=== PATIENT | female | born 1945 | race Caucasian/White ===

== ENCOUNTER 2022-12-08 11:43 | Outpatient (REF) | payer MEDICARE, MEDICAID, SELFPAY | END 2022-12-08 11:44 | disposition home or self-care (01) | LOC: HO.HAP 11:43 | PROVIDERS: Visit Provider Internal Medicine | DX: Z46.1 Encounter for fitting and adjustment of hearing aid (principal); H90.3 Sensorineural hearing loss, bilateral | CPT/HCPCS: 92593; 99499 ==

== ENCOUNTER 2025-06-16 10:57 | Outpatient (REF) | payer SELFPAY ==
--- OUTSIDE RECORDS SUMMARY | 2025-06-16 14:01 | XMS_ITS | Encounter Summary ---
Author Organization [facility] Address [address] [place], [place] [id number] Care Team Providers Care R And D Lab Technician Name Role Phone Sarah Nolasco PA-C Primary Care Provi bree Roman Calix MD Unavailable Reason for Visit * Reason Comments Appointment Encounter Details Date Type Department Care Team (Late Contact Info) Description 06/18/[address] [phone] Sarah Nolasco PA-C [address] [place] [address] Appointment Social History Tobacco Use Types Packs/Day Years Used Date Smoking Tobacco: Never Smokeless Tobacco: Never Alcohol Use Standard Drinks/Week Comments Never 0 (1 standard drink = 0.6 oz pur e alcohol) PHQ-2 Answer Date Recorded PHQ-2 Total Score 0 02/12/2024 Comments No Sex and Gender Information Value Date Recorded Sex Assigned at Female 02/11/2024 2:08 PM EDT Legal Sex Female 1:16 PM EST Gender Identity Female 02/11/2024 2:08 PM EDT Sexual Orientation Heterosexual (straight) 02/10 2:08 PM EDT documented as of this encounter Plan of Treatment Upcoming Encounters Date Type Department Care Team ([facility] Contact Info) Description 09/28/2025 11:00 AM EST Office Visit [address] [place] [phone] Sarah Nolasco PA-C [address] [place] [address] documented as of this encounter Visit Diagnoses Not on filedocumented in this encounter Care Teams R And D Lab Technician Relationship Specialty Start Date End Date Sarah Nolasco PA-C [address] [place] [address] PCP - General Internal Medicine 02/02/24 Roman Calix MD [address] [place] [address] Referring Provider Cardiology-Scan 02/02/24 [facility] Dermatology 01/14/24 Meka Bahena Nurse Practitioner Surgery, Breast 01/14/24 documented as of this encounter
--- OUTSIDE RECORDS SUMMARY | 2025-06-16 14:01 | XMS_ITS | Encounter Summary ---
Author Organization [facility] Address [address] [place], [place] [id number] Care Team Providers Care Suit Maker Name Role Phone Sarah Nolasco PA-C Primary Care Provi bree Roman Calix MD Unavailable Encounter Details Date Type Department Care Team (Late Contact Info) Description 06/24/2024 Scanned Document [address] [phone] Sarah Nolasco PA-C [address] [place] [address] Social History Tobacco Use Types Packs/Day Years [...] Upcoming Encounters Date Type Department Care Team (Late Contact Info) Description 09/28/2025 11:00 AM EST Office Visit [address] [phone] Sarah Nolasco PA-C [address] [place], [place] [phone] documented as of this encounter Visit Diagnoses Not on filedocumented in this encounter Care Teams Suit Maker Relationship Specialty Start Date End Date Sarah Nolasco PA-C [address] [place] [address] PCP - General Internal Medicine 02/02/24 Roman Calix MD [address] [place] [address] Referring Provider Cardiology-Scan 02/02/24 [facility] Dermatology 01/14/24 Meka Bahena Nurse Practitioner Surgery, Breast 01/14/24 documented as of this encounter
--- OUTSIDE RECORDS SUMMARY | 2025-06-16 14:01 | XMS_ITS | Encounter Summary ---
Author Organization [facility] Address [address] [place] [address] Care Team Providers Care Optometric Assistant Name Role Phone Sarah Nolasco PA-C Primary Care Provi bree Roman Calix MD Unavailable [phone] Encounter Details Date Type Department Care Team (Late Contact Info) Description 02/28/2024 Scanned Document [facility] [address] [place] [phone] Sarah Nolasco PA-C [address] [place] [address] [phone] Social History Tobacco Use Types Packs/Day Years [...] Description 09/28/2025 11:00 AM EST Office Visit [address] [place] [phone] Sarah Nolasco PA-C [address] [place], [place] [address] documented as of this encounter Visit Diagnoses Not on filedocumented in this encounter Care Teams Optometric Assistant Relationship Specialty Start Date End Date Sarah Nolasco PA-C [address] [place] [address] PCP - General Internal Medicine 02/02/24 Roman Calix MD [address] [place] [address] Referring Provider Cardiology-Scan 02/02/24 [facility] Dermatology 01/14/24 Meka Bahena Nurse Practitioner Surgery, Breast 01/14/24 documented as of this encounter
--- OUTSIDE RECORDS SUMMARY | 2025-06-16 14:02 | XMS_ITS | Clinical Summary ---
Author Organization [facility] Address [address] [place] [address] Care Team Providers Care Bridge Worker Apprentice Name Role Phone Sarah Nolasco Primary Care Provider [phone] Encounters Date Type Department Care Team Description 06/05/2025 Telephone [facility] Cardiology [address] [place] [address] Roman Calix MD 03/27/[address] [place] [address] Sarah Nolasco PA from Last 3 Months Social History Tobacco Use Types Packs/Day Years Used Date Smoking Tobacco: Never Smokeless Tobacco: Never Alcohol Use Standard Drinks/Week Comments Not Currently 0 (1 standard drink = 0.6 oz pur e alcohol) Comments Unknown Sex and Gender Information Value Date Recorded Sex Assigned at Not on file Legal Sex Female 2:10 PM EST Gender Identity Not on file Sexual Orientation Not on file Obstetrics History Last Filed Vital Signs Vital Sign Reading Time Taken Comments Blood Pressure 120/88 02/07/2023 11:07 AM EDT Pulse 68 08/24/2022 10:13 AM EST Temperature - - Respiratory Rate - - Oxygen Saturation - - Inhaled Oxygen Concentration - - Weight 69.4 kg (153 lb) 02/07/2023 11:07 AM EDT Height 157.5 cm (5' 2 ) 02/07/2023 11:07 AM EDT Body Mass Index 27.98 02/07/2023 11:07 AM EDT Plan of Treatment Health Maintenance Due Date Last Done Comments DTaP,Tdap,and Td Vaccines (1 - Tdap) 1962 Pneumococcal Vaccine: 50+ Years (1 of 1 - PCV) 1993 Zoster Vaccines (1 of 2) 1993 RSV Immunization Adult Patients (1 - 1-dose 75+ series) 2018 Cholesterol Screening (Lipid Panel) 07/29/2022 Falls Risk Assessment 07/29/2022 Osteoporosis Screening (Bone Density Screening) 07/29/2022 Social Influencers of Health Screening 07/29/2022 Hypertension/CHF/CAD Annual BMP Blood Test 07/30/2022 Medicare Annual Wellness Visit 02/13/2024 02/12/2023 Depression Screening 08/20/2024 COVID-19 Vaccine (1 - 2023-2 5 season) 2025 Influenza Vaccine (#1) 2025 0, 09/08/2019 HIB Vaccines Aged Out No longer eligi ble based on patient's age to complete this topic HPV Vaccines Aged Out No longer eligi ble based on patient's age to complete this topic Hepatitis A Vaccines Aged Out No long er eligible based on patient's age to complete this topic Hepatitis B Vaccines Aged Out No long er eligible based on patient's age to complete this topic IPV Vaccines Aged Out No longer eligi ble based on patient's age to complete this topic MMR Vaccines Aged Out No longer eligi ble based on patient's age to complete this topic Meningococcal ACWY Vaccine Aged Out N o longer eligible based on patient's age to complete this topic Meningococcal B Vaccine Aged Out No l onger eligible based on patient's age to complete this topic RSV Immunization Patients Under 20 months Aged Out No longer eligible b ased on patient's age to complete this topic Varicella Vaccines Aged Out No longer eligible based on patient's age to complete this topic Care Teams Bridge Worker Apprentice Relationship Specialty Start Date End Date Sarah Nolasco PA [address] [place] [address] PCP - General Physician Mounter Hand 03/27/25
--- OUTSIDE RECORDS SUMMARY | 2025-06-16 14:02 | XMS_ITS | Encounter Summary ---
Author Organization [facility] Address [address] [place], [place] [id number] Care Team Providers Care Coverstitch Binder Name Role Phone Sarah Nolasco PA-C Primary Care Provi bree Roman Calix MD Unavailable [phone] Encounter Details Date Type Department Care Team (Late st Contact Info) Description 05/30/[address] [phone] Sarah Nolasco PA-C [address] [place] [address] Social History Tobacco Use Types Packs/Day Years [...] PM EDT documented as of this encounter Miscellaneous Notes * Telephone Encounter - Vivi Medina MA - 05/30/2024 2:21 PM EDT Patient aware of letter. * Telephone Encounter - Vivi Medina MA - 05/30/2024 1:12 PM EDT Spoke with Yadira she wants go back Jun 02. I can't addend notes. Sorry! * Telephone Encounter - Mariam Rosas MA - 05/30/2024 11:16 AM EDT Pt stated her managers are desperate for her to come back to work. They are willing to give he timeoff for PT. Pt is asking if sarah can update letter for her to return to work on Sunday. She would like it emailed [email or web address] documented in this encounter Plan of Treatment Upcoming Encounters Date Type Department Care Team (Late st Contact Info) Description 09/28/2025 11:00 AM EST Office Visit [address] [place] [address] Sarah Nolasco PA-C [address] [place] [address] documented as of this encounter Visit Diagnoses Not on filedocumented in this encounter Care Teams Coverstitch Binder Relationship Specialty Start Date End Date Sarah Nolasco PA-C [address] [place] [phone] (Work) PCP - General Internal Medicine 02/02/24 Roman Calix MD [address] [place] [address] Referring Provider Cardiology-Scan 02/02/24 [facility]at[facility] 01/14/24 Meka Bahena Nurse Practitioner Surgery, Breast 01/14/24 documented as of this encounter
--- OUTSIDE RECORDS SUMMARY | 2025-06-16 14:02 | XMS_ITS | Encounter Summary ---
Author Organization [facility] Address [address] [place] [address] Care Team Providers Care Tiedown Operator Name Role Phone Sarah Nolasco PA-C Primary Care Provi bree BuffRoman pinto MD Unavailable [phone] Encounter Details Date Type Department Care Team (Late Contact Info) Description 05/12/[address] [phone] Sarah Nolasco PA-C [address] [place] [phone] Social History Tobacco Use Types Packs/Day Years [...] encounter Miscellaneous Notes * Telephone Encounter - Mariam Rosas MA - 05/12/2024 3:10 PM EDT Appt made documented in this encounter Plan of Treatment Upcoming Encounters Date Type Department Care Team (Late st Contact Info) Description 09/28/2025 11:00 AM EST Office Visit [facility] [place] [address] [place] [address] Sarah Nolasco PA-C [address] [place] [address] documented as of this encounter Visit Diagnoses Not on filedocumented in this encounter Care Teams Tiedown Operator Relationship Specialty Start Date End Date Sarah Nolasco PA-C [address] [place] [address] PCP - General Internal Medicine 02/02/24 Roman Calix MD [address] [place] [address] Referring Provider Cardiology-Scan 02/02/24 [facility] 01/14/24 Meka Bahena Nurse Practitioner Surgery, Breast 01/14/24 documented as of this encounter
--- OUTSIDE RECORDS SUMMARY | 2025-06-16 14:02 | XMS_ITS | Encounter Summary ---
Author Organization [facility] Address [address] [place], [place] [phone] Care Team Providers Care Shale Processing Technician Name Role Phone Sarah Nolasco PA-C Primary Care Provi bree Roman Calix MD Unavailable [phone] Encounter Details Date Type Department Care Team (Late Contact Info) Description 04/15/2024 Scanned Document [address] [phone] Sarah Nolasco PA-C [address] [place] [address] Social History Tobacco Use Types Packs/Day Years [...] Description 09/28/2025 11:00 AM EST Office Visit [address] [phone] Sarah Nolasco PA-C [address] [place], [place] [phone] documented as of this encounter Visit Diagnoses Not on filedocumented in this encounter Care Teams Shale Processing Technician Relationship Specialty Start Date End Date Sarah Nolasco PA-C [address] [place] [address] PCP - General Internal Medicine 02/02/24 Roman Calix MD [address] [place] [address] Referring Provider Cardiology-Scan 02/02/24 [facility] Dermatology 01/14/24 Meka Bahena Nurse Practitioner Surgery, Breast 01/14/24 documented as of this encounter
--- OUTSIDE RECORDS SUMMARY | 2025-06-16 14:02 | XMS_ITS | Encounter Summary ---
Author Organization [facility] Address [address] [place], [place] [phone] Care Team Providers Care Shrinking Machine Operator Name Role Phone Sarah Nolasco PA-C Primary Care Provi bree Roman Calix MD Unavailable [phone] Encounter Details Date Type Department Care Team (Late Contact Info) Description 03/26/2024 Scanned Document [address] [phone] Sarah Nolasco PA-C [address] [place] [address] Social History Tobacco Use Types Packs/Day Years [...] Description 09/28/2025 11:00 AM EST Office Visit [address] [phone] Sarah Nolasco PA-C [address] [place], [place] [phone] documented as of this encounter Visit Diagnoses Not on filedocumented in this encounter Care Teams Shrinking Machine Operator Relationship Specialty Start Date End Date Sarah Nolasco PA-C [address] [place] [address] PCP - General Internal Medicine 02/02/24 Roman Calix MD [address] [place] [address] Referring Provider Cardiology-Scan 02/02/24 [facility] Dermatology 01/14/24 Meka Bahena Nurse Practitioner Surgery, Breast 01/14/24 documented as of this encounter
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
--- OUTSIDE RECORDS SUMMARY | 2025-06-16 14:02 | XMS_ITS | Encounter Summary ---
Author Organization [facility] Address [address] [place] [address] Care Team Providers Care Food General Manager Name Role Phone Sarah Nolasco PA-C Primary Care Provi bree Roman Calix MD Unavailable [phone] Encounter Details Date Type Department Care Team ([facility] Contact Info) Description 03/28/2024 Scanned Document [address] [phone] Emergency Medicine, Scan Social History Tobacco Use Types Packs/Day Years [...] Description 09/28/2025 11:00 AM EST Office Visit [address] [phone] Sarah Nolasco PA-C [address] [place] [address] [phone] documented as of this encounter Visit Diagnoses Not on filedocumented in this encounter Care Teams Food General Manager Relationship Specialty Start Date End Date Sarah Nolasco PA-C [address] [place] [address] PCP - General Internal Medicine 02/02/24 Roman Calix MD [address] [place] [address] Referring Provider Cardiology-Scan 02/02/24 [facility] Dermatology 01/14/24 Meka Bahena Nurse Practitioner Surgery, Breast 01/14/24 documented as of this encounter
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
== END 2025-06-16 10:58 | disposition home or self-care (01) ==
LOC: HO.HAP 10:57
PROVIDERS: Visit Provider Internal Medicine
DX: Z13.89 Encounter for screening for other disorder (principal)

== ENCOUNTER 2025-06-18 11:13 | Outpatient (REF) | payer SELFPAY ==
--- OUTSIDE RECORDS SUMMARY | 2025-06-18 14:03 | XMS_ITS | Clinical Summary ---
Author Organization [facility] ity Address [address] [place] [address] Care Team Providers Care Shooter Helper Name Role Phone Sarah Nolasco Primary Care Provider [phone] Encounters Date Type Department Care Team Description 06/05/2025 Telephone [facility] Cardiology [address] [place] [address] Roman Calix MD 03/27/[address] [place] [address] Sarah Nolasco PA from Last [...] age to complete this topic Care Teams Shooter Helper Relationship Specialty Start Date End Date Sarah Nolasco PA [address] [place] [address] PCP - General Physician Olive Grader 03/27/25
--- OUTSIDE RECORDS SUMMARY | 2025-06-18 14:03 | XMS_ITS | Encounter Summary ---
Author Organization [facility] Address [address] [place] [address] Care Team Providers Care Associate Professor Of Library Media Name Role Phone Sarah Nolasco PA-C Primary Care Provi bree Roman Calix MD Unavailable [phone] Encounter Details Date Type Department Care Team (Late Contact Info) Description 02/28/2024 Scanned Document [facility] [address] [place] [phone] Sarah Nolasco PA-C [address] [place] [phone] Social History Tobacco Use Types Packs/Day Years [...] Description 09/28/2025 11:00 AM EST Office Visit [address] [place] [phone] Sarah Nolasco PA-C [address] [place], [place] [address] documented as of this encounter Visit Diagnoses Not on filedocumented in this encounter Care Teams Associate Professor Of Library Media Relationship Specialty Start Date End Date Sarah Nolasco PA-C [address] [place] [address] PCP - General Internal Medicine 02/02/24 Roman Calix MD [address] [place] [address] Referring Provider Cardiology-Scan 02/02/24 [facility] Dermatology 01/14/24 Meka Bahena Nurse Practitioner Surgery, Breast 01/14/24 documented as of this encounter
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
--- OUTSIDE RECORDS SUMMARY | 2025-06-18 14:03 | XMS_ITS | Encounter Summary ---
Author Organization [facility] Address [address] [place], [place] [id number] Care Team Providers Care Official Court Interpreter Name Role Phone Sarah Nolasco PA-C Primary Care Provi bree Roman Calix MD Unavailable [phone] Encounter Details Date Type Department Care Team (Late st Contact Info) Description 05/30/[address] [phone] Sarah Nolasco PA-C [address] [place] [address] Social History Tobacco Use Types Packs/Day Years [...] on Sunday. She would like it emailed [email or web address] documented in this encounter Plan of Treatment Upcoming Encounters Date Type Department Care Team (Late st Contact Info) Description 09/28/2025 11:00 AM EST Office Visit [address] [place] [address] Sarah Nolasco PA-C [address] [place] [address] documented as of this encounter Visit Diagnoses Not on filedocumented in this encounter Care Teams Official Court Interpreter Relationship Specialty Start Date End Date Sarah Nolasco PA-C [address] [place] [phone] (Work) PCP - General Internal Medicine 02/02/24 Roman Calix MD [address] [place] [address] Referring Provider Cardiology-Scan 02/02/24 [facility] 01/14/24 Meka Bahena Nurse Practitioner Surgery, Breast 01/14/24 documented as of this encounter
--- OUTSIDE RECORDS SUMMARY | 2025-06-18 14:03 | XMS_ITS | Encounter Summary ---
Author Organization [facility] Address [address] [place] [address] Care Team Providers Care Pediatric Nephrologist Name Role Phone Sarah Nolasco PA-C Primary Care Provi bree Roman Calix MD Unavailable [phone] Encounter Details Date Type Department Care Team ([facility] Contact Info) Description 03/28/2024 Scanned Document [address] [phone] Emergency Medicine, Scan Social History Tobacco Use [...] Description 09/28/2025 11:00 AM EST Office Visit [address] [phone] Sarah Nolasco PA-C [address] [place] [phone] documented as of this encounter Visit Diagnoses Not on filedocumented in this encounter Care Teams Pediatric Nephrologist Relationship Specialty Start Date End Date Sarah Nolasco PA-C [address] [place] [address] PCP - General Internal Medicine 02/02/24 Roman Calix MD [address] [place] [address] Referring Provider Cardiology-Scan 02/02/24 [facility] Dermatology 01/14/24 Meka Bahena Nurse Practitioner Surgery, Breast 01/14/24 documented as of this encounter
--- OUTSIDE RECORDS SUMMARY | 2025-06-18 14:03 | XMS_ITS | Encounter Summary ---
Author Organization [facility] Address [address] [place] [address] Care Team Providers Care Creative Lead Name Role Phone Sarah Nolasco PA-C Primary Care Provi bree Roman Calix MD Unavailable [phone] Reason for Visit * Reason Comments Appointment Encounter Details Date Type Department Care Team ([facility] st Contact Info) Description 03/26/2024 Telephone [facility] [address] [place] [address] Sharee Jansen, BUTTONHOLE MAKER [address] [facility] [address] [place] [address] Appointment Social History Tobacco Use Types Packs/Day [...] Description 09/28/2025 11:00 AM EST Office Visit [facility] [address] [facility] [address] [place] [address] Sarah Nolasco PA-C [address] [place] [address] documented as of this encounter Visit Diagnoses Not on filedocumented in this encounter Care Teams Creative Lead Relationship Specialty Start Date End Date Sarah Nolasco PA-C [address] [place] [address] PCP - General Internal Medicine 02/02/24 Roman Calix MD [address] [place] [address] Referring Provider Cardiology-Scan 02/02/24 [facility] 01/14/24 Meka Bahena Nurse Practitioner Surgery, Breast 01/14/24 documented as of this encounter
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
--- OUTSIDE RECORDS SUMMARY | 2025-06-18 14:03 | XMS_ITS | Encounter Summary ---
Author Organization [facility] Address [address] [place], [place] [id number] Care Team Providers Care Friction Paint Machine Tender Name Role Phone Sarah Nolasco PA-C Primary Care Provi bree Roman Calix MD Unavailable [phone] Reason for Visit * Reason Comments Appointment Encounter Details Date Type Department Care Team ([facility] [address] Contact Info) Description 06/18/[address] [phone] Sarah Nolasco PA-C [address] [place] [phone] Appointment Social History Tobacco Use Types Packs/Day [...] Upcoming Encounters Date Type Department Care Team ([facility] [address] Contact Info) Description 09/28/2025 11:00 AM EST Office Visit [address] [place] [phone] Sarah Nolasco PA-C [address] [place] [phone] documented as of this encounter Visit Diagnoses Not on filedocumented in this encounter Care Teams Friction Paint Machine Tender Relationship Specialty Start Date End Date Sarah Nolasco PA-C [address] [place] [address] PCP - General Internal Medicine 02/02/24 Roman Calix MD [address] [place] [address] Referring Provider Cardiology-Scan 02/02/24 [facility] Dermatology 01/14/24 Meka Bahena Nurse Practitioner Surgery, Breast 01/14/24 documented as of this encounter
--- OUTSIDE RECORDS SUMMARY | 2025-06-18 14:03 | XMS_ITS | Encounter Summary ---
Author Organization [facility] Address [address] [place], [place] [address] Care Team Providers Care Beer Brewer Name Role Phone Sarah Nolasco PA-C Primary Care Provi bree Roman Calix MD Unavailable [phone] Encounter Details Date Type Department Care Team (Late Contact Info) Description 06/24/2024 Scanned Document [address] [phone] Sarah Nolasco PA-C [address] [place] [address] Social History Tobacco Use Types Packs/Day Years [...] Description 09/28/2025 11:00 AM EST Office Visit [address] [phone] Sarah Nolasco PA-C [address] [place], [place] [phone] documented as of this encounter Visit Diagnoses Not on filedocumented in this encounter Care Teams Beer Brewer Relationship Specialty Start Date End Date Sarah Nolasco PA-C [address] [place] [address] PCP - General Internal Medicine 02/02/24 Roman Calix MD [address] [place] [address] Referring Provider Cardiology-Scan 02/02/24 [facility] Dermatology 01/14/24 Meka Bahena Nurse Practitioner Surgery, Breast 01/14/24 documented as of this encounter
--- OUTSIDE RECORDS SUMMARY | 2025-06-18 14:03 | XMS_ITS | Encounter Summary ---
Author Organization [facility] Address [address] [place], [place] [address] Care Team Providers Care Charger Operator Name Role Phone Sarah Nolasco PA-C Primary Care Provi bree Roman Calix MD Unavailable [phone] Encounter Details Date Type Department Care Team (Late Contact Info) Description 04/15/2024 Scanned Document [address] [phone] Sarah Nolasco PA-C [address] [place] [address] Social History Tobacco Use Types Packs/Day Years [...] Description 09/28/2025 11:00 AM EST Office Visit [address] [phone] Sarah Nolasco PA-C [address] [place], [place] [phone] documented as of this encounter Visit Diagnoses Not on filedocumented in this encounter Care Teams Charger Operator Relationship Specialty Start Date End Date Sarah Nolasco PA-C [address] [place] [address] PCP - General Internal Medicine 02/02/24 Roman Calix MD [address] [place] [address] Referring Provider Cardiology-Scan 02/02/24 [facility] Dermatology 01/14/24 Meka Bahena Nurse Practitioner Surgery, Breast 01/14/24 documented as of this encounter
--- OUTSIDE RECORDS SUMMARY | 2025-06-18 14:03 | XMS_ITS | Encounter Summary ---
Author Organization [facility] Address [address] [place], [place] [id number] Care Team Providers Care Lugger Name Role Phone Sarah Nolasco PA-C Primary Care Provi bree Roman Calix MD Unavailable [phone] Encounter Details Date Type Department Care Team (Late Contact Info) Description 03/26/2024 Scanned Document [address] [phone] Sarah Nolasco PA-C [address] [place] [address] Social History Tobacco Use Types Packs/Day Years [...] Description 09/28/2025 11:00 AM EST Office Visit [address] [phone] Sarah Nolasco PA-C [address] [place], [place] [phone] documented as of this encounter Visit Diagnoses Not on filedocumented in this encounter Care Teams Lugger Relationship Specialty Start Date End Date Sarah Nolasco PA-C [address] [place] [address] PCP - General Internal Medicine 02/02/24 Roman Calix MD [address] [place] [address] Referring Provider Cardiology-Scan 02/02/24 [facility] Dermatology 01/14/24 Meka Bahena Nurse Practitioner Surgery, Breast 01/14/24 documented as of this encounter
--- OUTSIDE RECORDS SUMMARY | 2025-06-18 14:03 | XMS_ITS | Encounter Summary ---
Author Organization [facility] Address [address] [place] [address] Care Team Providers Care Script Supervisor Name Role Phone Sarah Nolasco PA-C Primary Care Provi bree BuffRoman pinto MD Unavailable [phone] Encounter Details Date Type Department Care Team (Late Contact Info) Description 05/12/[address] [phone] Sarah Nolasco PA-C [address] [place] [phone] Social History Tobacco Use Types Packs/Day Years [...] Description 09/28/2025 11:00 AM EST Office Visit [facility] [place] [address] [place] [address] Sarah Nolasco PA-C [address] [place] [address] documented as of this encounter Visit Diagnoses Not on filedocumented in this encounter Care Teams Script Supervisor Relationship Specialty Start Date End Date Sarah Nolasco PA-C [address] [place] [address] PCP - General Internal Medicine 02/02/24 Roman Calix MD [address] [place] [address] Referring Provider Cardiology-Scan 02/02/24 [facility] 01/14/24 Meka Bahena Nurse Practitioner Surgery, Breast 01/14/24 documented as of this encounter
== END 2025-06-18 11:14 | disposition home or self-care (01) ==
LOC: HO.HAP 11:13
PROVIDERS: Visit Provider Internal Medicine
DX: Z46.1 Encounter for fitting and adjustment of hearing aid (principal); H90.3 Sensorineural hearing loss, bilateral
CPT/HCPCS: V5299